=== PATIENT | female | born 1965 | race Caucasian/White ===

== ENCOUNTER → 2019-02-21 | Outpatient (CLI) | payer BC, OTHER ==
[~2019-02-21] MED LIST: ERYT.5TO BOTHEYES; LEVSOD88
== END | disposition home or self-care (01) ==
LOC: LAB EV 16:20 → LAB SHORT 16:20
DX: N39.0 Urinary tract infection, site not specified (principal)
CPT/HCPCS: 87077; 87086; 87186

== ENCOUNTER → 2019-03-05 | Outpatient (CLI) | payer BC, OTHER | END | disposition home or self-care (01) | LOC: LAB SHORT 15:55 → LAB EV 15:55 | DX: R30.0 Dysuria (principal) | CPT/HCPCS: 87077; 87086; 87186 ==

== ENCOUNTER → 2020-09-24 | Outpatient (CLI) | payer BC, OTHER ==
[2020-09-26 15:11] LABS: HPV 16 Positive (Negative); HPV 18 Negative (Negative); HPV OTHER HR TYPES Negative (Negative)
== END | disposition home or self-care (01) ==
LOC: LAB SHORT 12:00
PROVIDERS: Student in an Organized Health Care Education/Training Program
DX: Z01.419 Encounter for gynecological examination (general) (routine) without abnormal findings (principal)
CPT/HCPCS: 87624; G0145

== ENCOUNTER → 2024-12-20 | Outpatient (CLI) | payer BC ==
[2024-12-25 17:34] LABS: HPVG SOURCE Cervical
== END ==
LOC: LAB SHORT 10:06 → LAB 10:06
PROVIDERS: Family Medicine
DX: Z01.419 Encounter for gynecological examination (general) (routine) without abnormal findings (principal)
CPT/HCPCS: 87624; 87625; G0145